=== PATIENT | female | born 1955 | race Caucasian/White ===

== ENCOUNTER 2021-05-19 06:53 | Day surgery (SDC) | payer MEDICARE, BC ==
[~2021-05-19 06:53] MED LIST: Lactated Ringers 1,000 ML IV SCH; Sodium Chloride 0.9% 10 ML Syringe FLUSH PRN
[2021-05-19] MEDS ORDERED: Atropine 0.4 MG/ML SDV IVPUSH ONE (06:54)
[2021-05-19] MEDS ORDERED: Propofol 200 MG/20 ML SDV IV ONE (06:54)
[2021-05-19 09:59] VITALS: BP 126/64; PULSE 69
== END 2021-05-19 10:03 | disposition home or self-care (01) ==
LOC: FB.SDS 06:53
PROVIDERS: ATTEND Surgery
DX: Z12.11 Encounter for screening for malignant neoplasm of colon (principal); D12.8 Benign neoplasm of rectum; M17.0 Bilateral primary osteoarthritis of knee; R13.10 Dysphagia, unspecified; C91.10 Chronic lymphocytic leukemia of B-cell type not having achieved remission; Z79.899 Other long term (current) drug therapy; Z90.49 Acquired absence of other specified parts of digestive tract; Z98.890 Other specified postprocedural states; Z88.8 Allergy status to other drugs, medicaments and biological substances
CPT/HCPCS: 00811-QZ; 88305; J0461; J2704; J7120